=== PATIENT | male | born 1980 | race Caucasian/White ===

== ENCOUNTER 2021-07-05 00:46 | Emergency (ER) | payer OTHER ==
[~2021-07-05] VITALS: Ht 182.9 cm; Wt 88.6 kg
[2021-07-05 00:56] VITALS: BP 151/99
[2021-07-05] MEDS ORDERED: cyclobenzaprine 10mg tablet PO ONE (03:05)
[2021-07-05] MEDS ORDERED: ibuprofen tablet 400 MG TABLET PO ONE (03:05)
[2021-07-05] MEDS ORDERED: acetaminophen 325mg tablet PO ONE (03:05)
[2021-07-05] MEDS ORDERED: METH-797 PO (04:04)
[2021-07-05] MEDS ORDERED: PRED20TA PO (04:05)
[2021-07-05] MEDS ORDERED: DIAZ-351 PO (04:05)
== END 2021-07-05 04:24 | disposition home or self-care (01) ==
LOC: ER 00:47
DX: S46.812A Strain of other muscles, fascia and tendons at shoulder and upper arm level, left arm, initial encounter (principal); S16.1XXA Strain of muscle, fascia and tendon at neck level, initial encounter; S29.012A Strain of muscle and tendon of back wall of thorax, initial encounter; R20.2 Paresthesia of skin; Z79.899 Other long term (current) drug therapy; X50.0XXA Overexertion from strenuous movement or load, initial encounter; Y93.89 Activity, other specified; Y92.89 Other specified places as the place of occurrence of the external cause; Y99.0 Civilian activity done for income or pay
CPT/HCPCS: 73030; 99283